=== PATIENT | male | born 1980 | race Caucasian/White ===

== ENCOUNTER 2017-12-26 13:16 | Emergency (ER) | payer OTHER ==
[2017-12-26 13:34] VITALS: TEMP 98.1; BMI 26.9
--- NOTE | 2017-12-26 14:22 | PDOC ---
History of Present Illness - General Chief Complaint: Chest Pain Stated Complaint: PCP SENT/CHEST PAIN Time Seen by Provider: 12/26/17 13:32 History Source: Patient Exam Limitations: No Limitations - History of Present Illness Initial Comments: 12/26/17 14:15 Pt is a 37yo m with PMH of T2DM, Anemia s/p gastric bypass presenting to ED with complaints of feeling lightheaded associated with black out vision, feeling of numbness throughout the whole body that started 2 days ago. Pt says he has several episodes a day and is usually when he is standing. He admits to 3 episodes today while he was at work. He denies loss of consciousness during these episodes, he says it lasts about 30 seconds. Associated with "stuffy ears ", SOB, palpitations and occasionally headaches. Denies dizziness, chest pain, abdominal pain, n/v/d, urinary symptoms. Denies history of cardiac issues in the family PMD: Sury PMH: see hpi PSH: Gastric bypass 2010, revision 2015 cholecystectomy 2014 Meds: metformin, B12 Social: denies Allergies: nkda Past History - Past Medical History Allergies/Adverse Reactions: Allergies Allergy/AdvReac Type Severity Reaction Status Date / Time No Known Allergies Allergy Verified 12/26/17 13:34 Home Medications: Ambulatory Orders NK [No Known Home Medication] 12/26/17 COPD: No CHF: No Diabetes: Yes Other medical history: neuropathies - Suicide/Smoking/Psychosocial Hx Smoking History: Never smoked Have you smoked in the past 12 months: No Information on smoking cessation initiated: No Hx Alcohol Use: No Drug/Substance Use Hx: No Substance Use Type: None Review of Systems - Review of Systems Constitutional: Yes: Weight Stable. No: Chills, Fever, Weakness HEENTM: No: Eye Pain, Blurred Vision, Recent change in vision, Double Vision, Ear Pain, Ear Discharge, Tinnitus, Hearing Loss, Throat Pain Respiratory: No: Cough, Shortness of Breath Cardiac (ROS): Yes: Lightheadedness, Palpitations. No: Chest Pain ABD/GI: No: Constipated, Diarrhea, Nausea, Rectal Bleeding, Vomiting, Abdominal cramping, Tarry Stools : No: Burning, Dysuria, Frequency Musculoskeletal: No: Back Pain, Joint Pain, Muscle Weakness Integumentary: No: Symptoms Reported Neurological: No: Headache, Numbness, Paresthesia, Seizure, Tingling, Tremors, Weakness Hematologic/Lymphatic: Yes: Anemia. No: Blood Clots *Physical Exam - Vital Signs Last Vital Signs Temp Pulse Resp BP Pulse Ox 98.1 F 82 16 112/69 100 12/26/17 13:31 12/26/17 13:31 12/26/17 13:31 12/26/17 13:31 12/26/17 13:31 - Physical Exam General Appearance: Yes: Nourished, Appropriately Dressed. No: Apparent Distress HEENT: positive: EOMI, ABBIE, TMs Normal, Pharynx Normal, Hearing Grossly Normal. negative: Pale Conjunctivae, Scleral Icterus (R), Scleral Icterus (L) Neck: positive: Trachea midline, Supple. negative: Carotid bruit, Lymphadenopathy (R), Lymphadenopathy (L) Respiratory/Chest: positive: Lungs Clear, Normal Breath Sounds Cardiovascular: positive: Regular Rhythm, Regular Rate, S1, S2. negative: Edema , JVD, Murmur ED Treatment Course - LABORATORY CBC & Chemistry Diagram: 12/26/17 14:39 12/26/17 14:39 Medical Decision Making - Medical Decision Making 12/27/17 01:02 EDT Pt is a 37yo m with PMH of T2DM, Anemia s/p gastric bypass presenting to ED with complaints of feeling lightheaded associated with black out vision, feeling of numbness throughout the whole body that started 2 days ago. Sent from Urgent care for "abnormal ekg" Vitals: wnl PE: benign DDx: presyncope: cardiogenic, neurogenic, vasovagal or orthostatic. Low suspicion for PE given stable vitals. Will order ekg, trop, cbc, cmp. orthostatic vitals. Orthostatics: Selected Entries 12/26/17 15:40 Blood Pressure 117/89 [Right side Sitting] Blood Pressure 118/81 [Right side Supine] Blood Pressure 123/77 [Standing] Labs: Laboratory Tests 12/26/17 12/26/17 12/26/17 14:39 14:39 14:39 WBC 5.4 Hgb 11.4 L Hct 35.6 Plt Count 221 PT with INR 13.60 H INR 1.15 H PTT (Actin FS) 29.8 Sodium 136 Potassium 5.0 Chloride 103 BUN 18 Creatinine 0.8 Random Glucose 76 Troponin I 12/26/17 14:39 WBC Hgb Hct Plt Count PT with INR INR PTT (Actin FS) Sodium Potassium Chloride BUN Creatinine Random Glucose Troponin I < 0.02 EKG: NSR. no oj or depressions, t wave inversions. PT is hemodynamically stable, has pcp follow up, can get arranged sooner. pt given return precautions. Agreed to plan. *DC/Admit/Observation/Transfer Diagnosis at time of Disposition: Pre-syncope - Discharge Dispostion Disposition: HOME Condition at time of disposition: Good Decision to Admit order: No - Referrals Referrals: ON STAFF,NOT [Primary Care Provider] - - Patient Instructions Printed Discharge Instructions: DI for Syncope in Adults (Fainting) Additional Instructions: You were seen here today for evaluation of lightheadedness. Your EKG and blood tests were normal. It is probably not your heart causing these symptoms. I recommend drinking lots of fluids and getting adequate rest. I recommend making an appointment with your primary care doctor sooner than 2 weeks if you can. Come back to the emergency room if you pass out, you start getting dizzy (room is spinning), you feel this way when you are sitting down, you have palpitations , you have chest pain or if any new concerning symptom develops. Thank you - Post Discharge Activity Forms/Work/School Notes: Back to Work
--- NOTE | 2017-12-26 14:23 | PDOC ---
Attending Attestation - HPI HPI: 12/26/17 15:12 The patient is a 37 year old male with past medical history of diabetes, s/p gastric bypass with residual anemia, who presents to the ED with complaints of multiple episodes of dizzy spells over the past 24 hours. Patient reports episodes of lightheadedness while standing where his vision goes black and he gets fullness in his ears. During these episodes he reports that his whole body goes numb followed by palpitations, shortness of breath and headache. These episodes last about 3 minutes and have occurred over 10 times since yesterday. He denies any associated chest pain, diaphoresis or syncope. Denies any other focal neurological deficits. Denies any family history of heart disease. - Medical Decision Making 12/26/17 15:13 Documentation prepared by Radha Arias, acting as medical hospital sales for Lana Casiano MD.
[2017-12-26 14:51] LABS: BASO % 0.6 % (0-2.0); EOS % 1.7 % (0-4.5); HEMATOCRIT 35.6 % (35.4-49); HEMOGLOBIN 11.4 GM/dL (11.7-16.9); LYMPH % 33.8 % (8-40); MCH 20.7 pg (25.7-33.7); MEAN CELL VOLUME 64.8 fl (80-96); MEAN PLT VOLUME 8.8 fl (7.5-11.1); MONO % 7.7 % (3.8-10.2); NEUT % 56.2 % (42.8-82.8); PLATELET COUNT 221 K/MM3 (134-434); RBC 5.49 M/mm3 (4.00-5.60); RDW 19.7 % (11.9-15.9); WHITE BLOOD COUNT 5.4 K/mm3 (4.0-10.0)
[2017-12-26 15:00] LABS: INR 1.15 (0.83-1.09); PROTHROMBIN TIME (PATIENT) 13.6 SEC (9.7-13.0)
[2017-12-26 15:03] LABS: ACTIVATED PTT 29.8 SECONDS (25.2-36.5)
[2017-12-26 15:22] LABS: ALBUMIN 4.1 g/dl (3.4-5.0); ALK PHOS 92 U/L (45-117); ANION GAP 5 MMOL/L (8-16); BILIRUBIN,TOTAL 0.4 mg/dL (0.2-1); BLOOD UREA NITROGEN 18 mg/dL (7-18); CALCIUM 8.6 mg/dL (8.5-10.1); CHLORIDE 103 mmol/L (98-107); CO2 27 mmol/L (21-32); CREATININE 0.8 mg/dL (0.55-1.3); GLUCOSE,RANDOM 76 mg/dL (74-106); SGOT/AST 29 U/L (15-37); SGPT/ALT 25 U/L (13-61); SODIUM 136 mmol/L (136-145); TOT PROT 7.9 g/dl (6.4-8.2)
[2017-12-26 15:23] LABS: ANISOCYTOSIS 1+; PLATELET ESTIMATE ADEQUATE
[2017-12-26 15:57] VITALS: BP 125/68; PULSE 68
--- NOTE | 2017-12-27 11:46 | EKG ---
Test Reason : Blood Pressure : / mmHG Vent. Rate : 082 BPM Atrial Rate : 082 BPM P-R Int : 124 ms QRS Dur : 090 ms QT Int : 344 ms P-R-T Axes : 077 078 078 degrees QTc Int : 401 ms NORMAL SINUS RHYTHM NORMAL ECG NO PREVIOUS ECGS AVAILABLE Confirmed by MIC LUGO MD ([id number]) on 12/27/2017 11:45:41 AM Referred By: Confirmed By:MIC LUGO MD
== END 2017-12-26 15:57 | disposition home or self-care (01) ==
LOC: JER 13:16
DX: R55 Syncope and collapse (principal); E11.9 Type 2 diabetes mellitus without complications; Z79.84 Long term (current) use of oral hypoglycemic drugs; D51.3 Other dietary vitamin B12 deficiency anemia; Z98.84 Bariatric surgery status
CPT/HCPCS: 36415; 80053; 84484; 85025; 85610; 85730; 93005; 93010; 99284-25